=== PATIENT | female | born 1990 | race Caucasian/White ===

== ENCOUNTER 2016-05-04 01:52 | Emergency (ER) | payer SELFPAY ==
[~2016-05-04] VITALS: Ht 160 cm; Wt 42.2 kg
[2016-05-04] MEDS ORDERED: LORAZEPAM INJ 2 MG/ML VIAL ONE (01:59)
[2016-05-04] MEDS ORDERED: IV SET PRIMARY 1 EA INFUS.SET MC ONE (02:02)
[2016-05-04] MEDS ORDERED: IV NS 0.9% 1,000 ML ONE (02:02)
[2016-05-04 02:15] LABS: BASOPHILS % (AUTO) 0.4 % (0.0-2.0); DIFF TOTAL % 100 %; EOSINOPHILS % (AUTO) 0.3 % (0.0-6.0); HEMATOCRIT 43 % (33-45); HEMOGLOBIN 14.7 g/dL (11.5-14.8); LYMPHOCYTES # (AUTO) 4.1 /CMM (0.8-4.8); LYMPHOCYTES % (AUTO) 35.9 % (20.0-44.0); MEAN CORPUSCULAR HEMOGLOBIN 32 PG (26.0-33.0); MEAN CORPUSCULAR HGB CONC 34 g/dl (31.0-36.0); MEAN CORPUSCULAR VOLUME 94 fL (82-100); MONOCYTES # (AUTO) 0.7 /CMM (0.1-1.30); MONOCYTES % (AUTO) 6.4 % (2.0-12.0); NEUTROPHILS # (AUTO) 6.6 /CMM (1.8-8.9); PLATELET COUNT (AUTO) 277 /CMM (150-450); RED BLOOD CELL COUNT(AUTO) 4.63 MIL/uL (4.0-5.2); WHITE BLOOD COUNT (AUTO) 11.5 K/uL (4.3-11.0)
[2016-05-04 02:25] LABS: ANION GAP 15 (5-14); CARBON DIOXIDE 27 mmol/L (21-32); CHLORIDE 104 mmol/L (98-107); CREATININE 0.9 mg/dL (0.6-1.3); GFR 76 mL/min (>60); GLUCOSE 120 mg/dL (74-106); POTASSIUM 3.8 mmol/L (3.5-5.1); SODIUM SERUM 142 mmol/L (136-145); UREA NITROGEN, BLOOD 15 mg/dL (7-18)
[2016-05-04 02:28] LABS: PROTHROMBIN TIME 10.8 SECS (9.5-12.7)
[2016-05-04] MEDS ORDERED: IV NS 0.9% 1,000 ML BAG IV ONE (02:30)
[2016-05-04] MEDS ORDERED: LORAZEPAM INJ 2 MG/ML VIAL IV ONE (02:30)
[2016-05-04 02:34] LABS: TROPONIN I < 0.017 ng/mL (0.00-0.056)
[2016-05-04 03:59] VITALS: BP 128/78
== END 2016-05-04 03:15 | disposition home or self-care (01) ==
LOC: ER 01:55
DX: F41.9 Anxiety disorder, unspecified (principal); F12.10 Cannabis abuse, uncomplicated; Z88.2 Allergy status to sulfonamides
CPT/HCPCS: 36415; 71010; 80048; 84484; 85025; 85730; 93005; 96361; 96374; 99285; A4606; J2060; J7030; Z7610